=== PATIENT | male | born 1990 | race Caucasian/White ===

== ENCOUNTER 2017-05-02 10:38 | Emergency (ER) | payer MEDICAID ==
[~2017-05-02] VITALS: Ht 185.4 cm; Wt 62.0 kg
[~2017-05-02 10:38] MED LIST: METH10TA2 PO
[2017-05-02] MEDS ORDERED: OLAN10TA3 PO (10:47)
[2017-05-02] MEDS ORDERED: SODIUM CHLORIDE 0.9% 1,000 ML IV ONE (11:08)
[2017-05-02 11:34] LABS: CHLORIDE 104 mEq/L (98-107)
[2017-05-02 11:38] LABS: BASOPHILS % 0.6 % (0.0-2.0); EOSINOPHILS % 3.4 % (0.0-5.0); HEMATOCRIT. 37.2 % (42.0-52.0); HEMOGLOBIN. 12.9 g/dL (14.0-18.0); LYMPHOCYTES % 42.6 % (20.0-50.0); MEAN CORPUSCULAR HEMOGLOBIN 29.6 pg (28.0-32.0); MEAN CORPUSCULAR VOLUME 85.8 fL (80.0-94.0); MEAN PLATELET VOLUME 7.5 fl (7.4-10.4); MONOCYTES % 10.4 % (2.0-8.0); PLATELET 243 x1000/uL (130-400); RED BLOOD CELL COUNT 4.34 mill/uL (4.7-6.1); RED CELL DISTRIBUTION WIDTH 12.7 % (11.6-14.6)
[2017-05-02 11:43] LABS: CARBON DIOXIDE 30 mEq/L (21-32); ETHANOL BLOOD < 10 mg/dL
[2017-05-02 12:34] VITALS: BP 120/64
[2017-05-02 12:49] LABS: *AMPHETAMINES SCREEN URINE NEGATIVE (NEGATIVE); *BARBITURATES SCREEN URINE NEGATIVE (NEGATIVE); *BENZODIAZEPINES SCREEN URINE NEGATIVE (NEGATIVE); *COCAINE SCREEN URINE PRESUMTIVE POSITIVE (NEGATIVE); CANNABINOID URINE SCREEN PRESUMTIVE POSITIVE (NEGATIVE); METHADONE URINE SCREEN PRESUMTIVE POSITIVE (NEGATIVE); OPIATES URINE SCREEN PRESUMTIVE POSITIVE (NEGATIVE); PHENCYCLIDINE URINE SCREEN NEGATIVE (NEGATIVE)
== END 2017-05-02 12:41 | disposition home or self-care (01) ==
LOC: ER 11:16
DX: S02.31XA Fracture of orbital floor, right side, initial encounter for closed fracture (principal); F19.10 Other psychoactive substance abuse, uncomplicated; Y08.89XA Assault by other specified means, initial encounter; Y93.89 Activity, other specified; Y92.89 Other specified places as the place of occurrence of the external cause; Y99.8 Other external cause status
CPT/HCPCS: 36415; 70450; 70486; 80053; 80305; 85025; 93005; 99285; G0482; Z7610; J7030

== ENCOUNTER 2017-08-23 14:09 | Emergency (ER) | payer MEDICAID ==
[~2017-08-23] VITALS: Ht 185.4 cm; Wt 68.0 kg
[~2017-08-23 14:09] MED LIST changes: +OLAN10TA3 PO
[2017-08-23 15:19] LABS: BASOPHILS % 0.5 % (0.0-2.0); EOSINOPHILS % 1.7 % (0.0-5.0); HEMATOCRIT. 40.3 % (42.0-52.0); HEMOGLOBIN. 14.2 g/dL (14.0-18.0); LYMPHOCYTES % 27.7 % (20.0-50.0); MEAN CORPUSCULAR HEMOGLOBIN 30.2 pg (28.0-32.0); MEAN CORPUSCULAR VOLUME 85.8 fL (80.0-94.0); MEAN PLATELET VOLUME 7.1 fl (7.4-10.4); MONOCYTES % 8.3 % (2.0-8.0); NEUTROPHILS % 61.8 % (40.0-76.0); PLATELET 209 x1000/uL (130-400); RED CELL DISTRIBUTION WIDTH 12.4 % (11.6-14.6)
[2017-08-23 15:34] LABS: CLARITY URINE CLEAR (CLEAR); COLOR URINE DARK YELLOW (YELLOW); GLUCOSE URINE NEGATIVE (NEGATIVE); KETONES URINE 1+ (NEGATIVE); LEUKOCYTE ESTERASE URINE TRACE (NEGATIVE); NITRITE URINE NEGATIVE (NEGATIVE); OCCULT BLOOD URINE NEGATIVE (NEGATIVE); PROTEIN URINE NEGATIVE (NEGATIVE); SPECIFIC GRAVITY URINE 1.037 (1.005-1.030)
[2017-08-23 15:35] LABS: CARBON DIOXIDE 26 mEq/L (21-32); CHLORIDE 106 mEq/L (98-107)
[2017-08-23 15:36] LABS: ETHANOL BLOOD < 10 mg/dL
[2017-08-23 15:59] LABS: *AMPHETAMINES SCREEN URINE PRESUMTIVE POSITIVE (NEGATIVE); *BARBITURATES SCREEN URINE NEGATIVE (NEGATIVE); *BENZODIAZEPINES SCREEN URINE NEGATIVE (NEGATIVE); *COCAINE SCREEN URINE NEGATIVE (NEGATIVE); CANNABINOID URINE SCREEN PRESUMTIVE POSITIVE (NEGATIVE); METHADONE URINE SCREEN PRESUMTIVE POSITIVE (NEGATIVE); OPIATES URINE SCREEN PRESUMTIVE POSITIVE (NEGATIVE); PHENCYCLIDINE URINE SCREEN NEGATIVE (NEGATIVE)
[2017-08-23 17:02] VITALS: BP 111/64
== END 2017-08-23 18:49 | disposition home or self-care (01) ==
LOC: ER 14:17
DX: S30.861A Insect bite (nonvenomous) of abdominal wall, initial encounter (principal); F17.210 Nicotine dependence, cigarettes, uncomplicated; F31.9 Bipolar disorder, unspecified; F20.9 Schizophrenia, unspecified; F12.10 Cannabis abuse, uncomplicated; F11.10 Opioid abuse, uncomplicated; W57.XXXA Bitten or stung by nonvenomous insect and other nonvenomous arthropods, initial encounter; Y93.89 Activity, other specified; Y92.488 Other paved roadways as the place of occurrence of the external cause
CPT/HCPCS: 36415; 80053; 80305; 81001; 85025; 93005; 99285; G0482

== ENCOUNTER 2017-11-09 05:12 | Emergency (ER) | payer MEDICAID ==
[~2017-11-09] VITALS: Ht 182.9 cm; Wt 59.0 kg
[2017-11-09 05:17] VITALS: BP 135/80
== END 2017-11-09 10:47 | disposition left against medical advice (07) ==
LOC: ER 05:12
DX: Z53.21 Procedure and treatment not carried out due to patient leaving prior to being seen by health care provider (principal)
CPT/HCPCS: 93005

== ENCOUNTER 2018-04-20 02:29 | Emergency (ER) | payer MEDICAID ==
[~2018-04-20] VITALS: Ht 182.9 cm; Wt 63.0 kg
[2018-04-20] MEDS ORDERED: SODIUM CHLORIDE 0.9% 1,000 ML IV ONE (02:40)
[2018-04-20 03:05] LABS: BASOPHILS % 0.3 % (0.0-2.0); EOSINOPHILS % 0.1 % (0.0-5.0); HEMOGLOBIN. 13.8 g/dL (14.0-18.0); LYMPHOCYTES % 17.8 % (20.0-50.0); MEAN CORPUSCULAR HEMOGLOBIN 30.1 pg (28.0-32.0); MEAN CORPUSCULAR VOLUME 87.2 fL (80.0-94.0); MONOCYTES % 5.6 % (2.0-8.0); NEUTROPHILS % 76.2 % (40.0-76.0); PLATELET 251 x1000/uL (130-400); RED BLOOD CELL COUNT 4.59 mill/uL (4.7-6.1); RED CELL DISTRIBUTION WIDTH 12.7 % (11.6-14.6)
[2018-04-20 03:10] LABS: CHLORIDE 104 mEq/L (98-107)
[2018-04-20 03:15] LABS: ETHANOL BLOOD < 10 mg/dL
[2018-04-20 04:38] LABS: CLARITY URINE CLEAR (CLEAR); COLOR URINE YELLOW (YELLOW); KETONES URINE NEGATIVE (NEGATIVE); LEUKOCYTE ESTERASE URINE 1+ (NEGATIVE); NITRITE URINE NEGATIVE (NEGATIVE); OCCULT BLOOD URINE TRACE (NEGATIVE); PH URINE 5.5 (4.5-8.0); PROTEIN URINE TRACE (NEGATIVE); SPECIFIC GRAVITY URINE 1.014 (1.005-1.030); UROBILINOGEN URINE 0.2 E.U./dL (0.2-1.0)
[2018-04-20 04:46] LABS: *AMPHETAMINES SCREEN URINE PRESUMTIVE POSITIVE (NEGATIVE); *BARBITURATES SCREEN URINE NEGATIVE (NEGATIVE); *BENZODIAZEPINES SCREEN URINE NEGATIVE (NEGATIVE); *COCAINE SCREEN URINE NEGATIVE (NEGATIVE); CANNABINOID URINE SCREEN NEGATIVE (NEGATIVE); PHENCYCLIDINE URINE SCREEN NEGATIVE (NEGATIVE)
[2018-04-20 04:47] LABS: METHADONE URINE SCREEN PRESUMTIVE POSITIVE (NEGATIVE); OPIATES URINE SCREEN PRESUMTIVE POSITIVE (NEGATIVE)
[2018-04-20] MEDS ORDERED: AZITHROMYCIN 500 MG TABLET PO SCH (05:45)
[2018-04-20 06:30] VITALS: BP 129/70
[2018-04-20] MEDS ORDERED: CEFTRIAXONE SODIUM 250 MG/VIAL IM SCH (07:00)
[2018-04-20] MEDS ORDERED: LIDOCAINE HCL/PF 1% 10 MG/ML 5ML VIAL ONE (07:33)
== END 2018-04-20 08:08 | disposition home or self-care (01) ==
LOC: ER 02:29
DX: F11.10 Opioid abuse, uncomplicated (principal); F15.10 Other stimulant abuse, uncomplicated; F20.9 Schizophrenia, unspecified; N39.0 Urinary tract infection, site not specified; R00.0 Tachycardia, unspecified; R00.2 Palpitations; R41.0 Disorientation, unspecified; F17.200 Nicotine dependence, unspecified, uncomplicated
CPT/HCPCS: 36415; 80053; 80305; 80307; 80329; 81003; 85025; 93005; 96372; 99285; G0482; J0696; J3490; J7030

== ENCOUNTER 2018-08-01 14:03 | Inpatient (IN) | payer MEDICAID ==
[~2018-08-01] VITALS: Ht 185.4 cm; Wt 74.6 kg
[2018-08-01] MEDS ORDERED: SODIUM CHLORIDE 0.9% 1,000 ML IV ONE (21:37)
[2018-08-01] MEDS ORDERED: ACETAMINOPHEN 325MG TABLET PO STA (22:22)
[2018-08-01] MEDS ORDERED: SODIUM CHLORIDE 0.9% 1000ML BAG (SEPSIS BOLUS) IV ONE (22:30)
[2018-08-01] MEDS ORDERED: PIPERACILLIN/TAZ 3.375G PREMIX 50 ML IV ONE (22:30)
[2018-08-01] MEDS ORDERED: VANCOMYCIN 1 G PREMIX 200 ML IV ONE (22:30)
[2018-08-02 00:33] LABS: BASOPHILS % 0.4 % (0.0-2.0); EOSINOPHILS % 1.5 % (0.0-5.0); HEMATOCRIT. 37.8 % (42.0-52.0); HEMOGLOBIN. 12.9 g/dL (14.0-18.0); LYMPHOCYTES % 20.9 % (20.0-50.0); MEAN CORPUSCULAR VOLUME 87.8 fL (80.0-94.0); MEAN PLATELET VOLUME 7.5 fl (7.4-10.4); MONOCYTES % 10.4 % (2.0-8.0); NEUTROPHILS % 66.8 % (40.0-76.0); PLATELET 229 x1000/uL (130-400); RED CELL DISTRIBUTION WIDTH 12.6 % (11.6-14.6)
[2018-08-02 00:37] LABS: PROTHROMBIN TIME 10.5 sec (9.1-11.1)
[2018-08-02 00:38] LABS: CHLORIDE 101 mEq/L (98-107)
[2018-08-02 00:45] LABS: ETHANOL BLOOD < 10 mg/dL
[2018-08-02 01:25] LABS: CLARITY URINE CLEAR (CLEAR); COLOR URINE YELLOW (YELLOW); KETONES URINE NEGATIVE (NEGATIVE); LEUKOCYTE ESTERASE URINE NEGATIVE (NEGATIVE); NITRITE URINE NEGATIVE (NEGATIVE); OCCULT BLOOD URINE NEGATIVE (NEGATIVE); PROTEIN URINE NEGATIVE (NEGATIVE); SPECIFIC GRAVITY URINE 1.004 (1.005-1.030)
[2018-08-02] MEDS ORDERED: SODIUM CHLORIDE 0.9% 1,000 ML IV ONE (01:29)
[2018-08-02 01:39] LABS: CANNABINOID URINE SCREEN NEGATIVE (NEGATIVE); PHENCYCLIDINE URINE SCREEN NEGATIVE (NEGATIVE)
[2018-08-02 01:40] LABS: *AMPHETAMINES SCREEN URINE PRESUMTIVE POSITIVE (NEGATIVE); *BARBITURATES SCREEN URINE NEGATIVE (NEGATIVE); *BENZODIAZEPINES SCREEN URINE NEGATIVE (NEGATIVE); *COCAINE SCREEN URINE NEGATIVE (NEGATIVE); METHADONE URINE SCREEN PRESUMTIVE POSITIVE (NEGATIVE); OPIATES URINE SCREEN NEGATIVE (NEGATIVE)
[2018-08-02] MEDS ORDERED: ACETAMINOPHEN 650MG SUPP PR PRN (08:00)
[2018-08-02] MEDS ORDERED: ONDANSETRON HCL 4MG/2ML INJ IV PRN (08:00)
[2018-08-02] MEDS ORDERED: MAGNESIUM/ALUMINUM HYDROXIDE/SIMETHICONE 30ML UDC PO PRN (08:00)
[2018-08-02] MEDS ORDERED: ACETAMINOPHEN 325MG TABLET PO PRN (08:00)
[2018-08-02] MEDS ORDERED: ACETAMINOPHEN 650MG/20.3ML UDC GT PRN (08:00)
[2018-08-02] MEDS ORDERED: HYDROCODONE/ACETAMINOPHEN 5/325MG TABLET PO PRN (08:00)
[2018-08-02 09:26] VITALS: BP 106/62
[2018-08-02 09:45] VITALS: BP 106/62
[2018-08-02 12:00] VITALS: BP 87/45
[2018-08-02] MEDS ORDERED: NOREPINEPHRINE 32 MG in DEXT 5% WATER 468 ML IV PRN (13:00)
[2018-08-02] MEDS ORDERED: VANCOMYCIN 1500MG in DEXTROSE 5% WATER 250ML IV SCH ×2 (15:00→21:00)
[2018-08-02 15:53] VITALS: BP 88/48
[2018-08-02] MEDS ORDERED: NOREPINEPHRINE 16MG in DEXT 5% WATER 250ML (QUADRUPLE CONC) IV PRN (17:30)
[2018-08-02] MEDS: OLANZAPINE 10MG TABLET PO SCH (17:38)
[2018-08-02] MEDS: HYDROCODONE/ACETAMINOPHEN 10/325MG TABLET PO PRN (17:50)
[2018-08-02] MEDS: NEOMY SULF/BACITRAC ZN/POLY OINT 28GM TOP SCH ×2 (18:08→21:24)
[2018-08-02 20:00] VITALS: BP 139/63
[2018-08-02] MEDS: HEMORRHOIDAL SUPP PR SCH (21:00)
[2018-08-02 22:00] VITALS: BP 121/62
[2018-08-03] VITALS (8 sets, daily range): BP systolic 91–112; BP diastolic 52–63
[2018-08-03] MEDS: HYDROCODONE/ACETAMINOPHEN 10/325MG TABLET PO PRN (03:54)
[2018-08-03] MEDS: VANCOMYCIN 1250MG in DEXTROSE 5% WATER 250ML IV SCH ×3 (05:14→21:48)
[2018-08-03] MEDS: OLANZAPINE 10MG TABLET PO SCH (08:44)
[2018-08-03] MEDS: HEMORRHOIDAL SUPP PR SCH ×2 (08:45→21:00)
[2018-08-03] MEDS: METHADONE HCL 10MG TABLET PO SCH (08:45)
[2018-08-03] MEDS: NEOMY SULF/BACITRAC ZN/POLY OINT 28GM TOP SCH ×2 (08:46→21:48)
[2018-08-03] MEDS: DOCUSATE SODIUM 250MG CAPSULE PO SCH (09:00)
[2018-08-03] MEDS ORDERED: LIDOCAINE HCL/PF 1% 2ML VIAL ONE (11:08)
[2018-08-03] MEDS: SODIUM CHLORIDE 0.45% 1,000 ML IV SCH ×2 (11:30→21:30)
[2018-08-03 13:42] LABS: BG BASE EXCESS -3.6 mmol/L (-2.0-2.0); BG CARBOXYHEMOGLOBIN 0.2 % (0.5-1.5); BG DEOXYHEMOGLOBIN 4.3 % (0.0-5.0); BG HCO3 ACT 21.1 mmol/L (22.0-26.0); BG METHEMOGLOBIN 0.3 % (0.0-1.5); BG OXYGEN SATURATION 95.7 % (92.0-98.5); BG OXYHEMOGLOBIN 95.2 % (94.0-97.0); BG PH 7.374 (7.350-7.450); BG PO2 86.7 mmHg (75.0-100.0); BG SAMPLE SITE RIGHT RADIAL; BG TOTAL HEMOGLOBIN 12.8 g/dL (12.0-18.0); BG VENT MODE ROOM AIR
[2018-08-03 15:34] LABS: CHLORIDE 107 mEq/L (98-107)
[2018-08-03 15:37] LABS: BASOPHILS % 0.6 % (0.0-2.0); HEMATOCRIT. 35.9 % (42.0-52.0); HEMOGLOBIN. 12.3 g/dL (14.0-18.0); LYMPHOCYTES % 37.8 % (20.0-50.0); MEAN CORPUSCULAR HEMOGLOBIN 29.9 pg (28.0-32.0); MEAN CORPUSCULAR VOLUME 87.3 fL (80.0-94.0); MEAN PLATELET VOLUME 7.8 fl (7.4-10.4); MONOCYTES % 9.3 % (2.0-8.0); NEUTROPHILS % 49.3 % (40.0-76.0); PLATELET 221 x1000/uL (130-400); RED BLOOD CELL COUNT 4.11 mill/uL (4.7-6.1); RED CELL DISTRIBUTION WIDTH 12.7 % (11.6-14.6)
[2018-08-03 15:40] LABS: AMMONIA 40 uMol/L (<32)
[2018-08-03 15:41] LABS: LDL CHOLESTEROL 62 mg/dL (5-100)
[2018-08-03 15:42] LABS: HDL CHOLESTEROL 35 mg/dL (40-59); T4 FREE 1.37 ng/dL (0.76-1.46)
[2018-08-03] MEDS: FOLIC ACID 1MG TABLET PO SCH (16:07)
[2018-08-03] MEDS: THIAMINE HCL 100MG TABLET PO SCH (16:07)
[2018-08-03] MEDS: MULTIVITAMINS,THER W-MINERALS TABLET PO SCH (16:08)
[2018-08-03 19:01] LABS: T4 FREE 1.41 ng/dL (0.76-1.46)
[2018-08-04] VITALS (11 sets, daily range): BP systolic 84–113; BP diastolic 49–64
[2018-08-04] MEDS: VANCOMYCIN 1250MG in DEXTROSE 5% WATER 250ML IV SCH ×3 (05:21→21:09)
[2018-08-04] MEDS: SODIUM CHLORIDE 0.45% 1,000 ML IV SCH ×2 (05:21→16:37)
[2018-08-04 07:04] LABS: AMMONIA 65 uMol/L (<32)
[2018-08-04 07:16] LABS: EOSINOPHILS % 3.3 % (0.0-5.0); HEMATOCRIT. 36.4 % (42.0-52.0); HEMOGLOBIN. 12.5 g/dL (14.0-18.0); LYMPHOCYTES % 40.8 % (20.0-50.0); MEAN CORPUSCULAR HEMOGLOBIN 30.1 pg (28.0-32.0); MEAN CORPUSCULAR VOLUME 87.7 fL (80.0-94.0); NEUTROPHILS % 46.9 % (40.0-76.0); PLATELET 259 x1000/uL (130-400); RED BLOOD CELL COUNT 4.15 mill/uL (4.7-6.1); RED CELL DISTRIBUTION WIDTH 12.5 % (11.6-14.6)
[2018-08-04] MEDS: HEMORRHOIDAL SUPP PR SCH ×2 (09:00→21:00)
[2018-08-04] MEDS: METHADONE HCL 10MG TABLET PO SCH (09:00)
[2018-08-04] MEDS: DOCUSATE SODIUM 250MG CAPSULE PO SCH (09:00)
[2018-08-04] MEDS: OLANZAPINE 10MG TABLET PO SCH (09:12)
[2018-08-04] MEDS: FOLIC ACID 1MG TABLET PO SCH (09:12)
[2018-08-04] MEDS: NEOMY SULF/BACITRAC ZN/POLY OINT 28GM TOP SCH ×2 (09:12→21:09)
[2018-08-04] MEDS: MULTIVITAMINS,THER W-MINERALS TABLET PO SCH (09:12)
[2018-08-04] MEDS: THIAMINE HCL 100MG TABLET PO SCH (09:14)
[2018-08-04 09:38] LABS: PHOSPHORUS 3.2 mg/dL (2.5-4.9)
[2018-08-04 09:39] LABS: VANCOMYCIN TROUGH 20.5 ug/mL (5.0-10.0)
[2018-08-04 09:43] LABS: CHLORIDE 107 mEq/L (98-107)
[2018-08-04 10:15] LABS: HEPATITIS B SURFACE ANTIGEN NEGATIVE
[2018-08-04 10:41] LABS: HEPATITIS B CORE AB IGM NEGATIVE
[2018-08-04 10:43] LABS: HEPATITIS A AB IGM NEGATIVE (NEGATIVE)
[2018-08-05] VITALS (9 sets, daily range): BP systolic 92–135; BP diastolic 49–74
[2018-08-05] MEDS: SODIUM CHLORIDE 0.45% 1,000 ML IV SCH ×2 (01:00→02:54)
[2018-08-05] MEDS: HYDROCODONE/ACETAMINOPHEN 10/325MG TABLET PO PRN (03:44)
[2018-08-05] MEDS: VANCOMYCIN 1250MG in DEXTROSE 5% WATER 250ML IV SCH (06:06)
[2018-08-05 08:26] LABS: BASOPHILS % 0.7 % (0.0-2.0); EOSINOPHILS % 2.3 % (0.0-5.0); HEMATOCRIT. 37.5 % (42.0-52.0); HEMOGLOBIN. 13.1 g/dL (14.0-18.0); LYMPHOCYTES % 27.1 % (20.0-50.0); MEAN CORPUSCULAR HEMOGLOBIN 30.3 pg (28.0-32.0); MEAN CORPUSCULAR VOLUME 86.7 fL (80.0-94.0); MEAN PLATELET VOLUME 7.4 fl (7.4-10.4); NEUTROPHILS % 63.9 % (40.0-76.0); PLATELET 275 x1000/uL (130-400); RED BLOOD CELL COUNT 4.33 mill/uL (4.7-6.1); RED CELL DISTRIBUTION WIDTH 12.4 % (11.6-14.6)
[2018-08-05] MEDS: HEMORRHOIDAL SUPP PR SCH (09:00)
[2018-08-05] MEDS: FOLIC ACID 1MG TABLET PO SCH (09:00)
[2018-08-05] MEDS: THIAMINE HCL 100MG TABLET PO SCH (09:00)
[2018-08-05] MEDS: MULTIVITAMINS,THER W-MINERALS TABLET PO SCH (09:00)
[2018-08-05] MEDS: METHADONE HCL 10MG TABLET PO SCH (09:00)
[2018-08-05] MEDS: OLANZAPINE 10MG TABLET PO SCH (09:00)
[2018-08-05] MEDS: NEOMY SULF/BACITRAC ZN/POLY OINT 28GM TOP SCH (09:00)
[2018-08-05] MEDS: DOCUSATE SODIUM 250MG CAPSULE PO SCH (09:00)
[2018-08-05 09:06] LABS: CHLORIDE 105 mEq/L (98-107)
[2018-08-05 09:11] LABS: PHOSPHORUS 2.4 mg/dL (2.5-4.9)
[2018-08-05 10:08] LABS: HIV SCREEN 4G Non Reactive (Non Reactive)
== END 2018-08-05 12:00 | disposition home or self-care (01) | DRG 720 ==
LOC: ER 14:57 → 6EST 08-02 01:02 → EDBEDREQ 08-02 01:03 → ENRESERV 08-02 07:40 → CVICU 08-02 16:37 → 3WST 08-02 18:56
PROVIDERS: ADMIT Internal Medicine; ATTEND Internal Medicine
DX: A41.9 Sepsis, unspecified organism (principal); R65.21 Severe sepsis with septic shock; G92 Toxic encephalopathy; E44.1 Mild protein-calorie malnutrition; F20.9 Schizophrenia, unspecified; L03.116 Cellulitis of left lower limb; B19.20 Unspecified viral hepatitis C without hepatic coma; D64.9 Anemia, unspecified; N50.89 Other specified disorders of the male genital organs; F17.210 Nicotine dependence, cigarettes, uncomplicated; K64.8 Other hemorrhoids; F14.10 Cocaine abuse, uncomplicated; F15.10 Other stimulant abuse, uncomplicated; R21 Rash and other nonspecific skin eruption; F31.9 Bipolar disorder, unspecified; K59.00 Constipation, unspecified; F99 Mental disorder, not otherwise specified; Z79.899 Other long term (current) drug therapy; Z71.6 Tobacco abuse counseling; Z68.21 Body mass index [BMI] 21.0-21.9, adult
CPT/HCPCS: 36415; 36600; 70544; 70553; 71045; 73630; 76700; 76870; 80048; 80061; 80202; 80305; 80307; 80329; 82140; 82375; 82607; 82746; 82805; 83036; 83605; 83735; 84100; 84145; 84439; 84443; 84481; 86705; 86709; 86803; 87340; 87389; 93005; 93970; 93976; 96365; 96366; 96368; 99285; G0482; J2543; J3370; J3490; J7030; J7050; J7060

== ENCOUNTER 2018-08-09 16:41 | Inpatient (IN) | payer MEDICAID ==
[~2018-08-09] VITALS: Ht 185.4 cm; Wt 63.5 kg
[2018-08-09] MEDS ORDERED: SODIUM CHLORIDE 0.9% 1000ML BAG (SEPSIS BOLUS) IV ONE (18:00)
[2018-08-09 18:29] LABS: PROTHROMBIN TIME 10.5 sec (9.1-11.1)
[2018-08-09 18:31] LABS: BASOPHILS % 0.6 % (0.0-2.0); CHLORIDE 103 mEq/L (98-107); EOSINOPHILS % 1.1 % (0.0-5.0); HEMATOCRIT. 37.8 % (42.0-52.0); LYMPHOCYTES % 37.4 % (20.0-50.0); MEAN CORPUSCULAR HEMOGLOBIN 29.9 pg (28.0-32.0); MEAN CORPUSCULAR VOLUME 86.6 fL (80.0-94.0); MEAN PLATELET VOLUME 7.2 fl (7.4-10.4); NEUTROPHILS % 49.9 % (40.0-76.0); PLATELET 332 x1000/uL (130-400); RED BLOOD CELL COUNT 4.36 mill/uL (4.7-6.1); RED CELL DISTRIBUTION WIDTH 12.8 % (11.6-14.6)
[2018-08-09 20:42] LABS: CLARITY URINE CLEAR (CLEAR); COLOR URINE YELLOW (YELLOW); KETONES URINE 1+ (NEGATIVE); LEUKOCYTE ESTERASE URINE NEGATIVE (NEGATIVE); NITRITE URINE NEGATIVE (NEGATIVE); OCCULT BLOOD URINE NEGATIVE (NEGATIVE); PH URINE 5.5 (4.5-8.0); PROTEIN URINE NEGATIVE (NEGATIVE); SPECIFIC GRAVITY URINE 1.026 (1.005-1.030); UROBILINOGEN URINE 0.2 E.U./dL (0.2-1.0)
[2018-08-09] MEDS ORDERED: PIPERACILLIN/TAZOBACTAM 3.375GM/50ML PREMIX IV ONE (21:00)
[2018-08-09] MEDS ORDERED: VANCOMYCIN 1 G PREMIX 200 ML IV SCH (21:00)
[2018-08-09] MEDS ORDERED: PIPERACILLIN/TAZ 3.375G PREMIX 50 ML IV NR (21:30)
[2018-08-09] MEDS ORDERED: DOCUSATE SODIUM 100MG CAPSULE PO PRN (23:45)
[2018-08-09] MEDS ORDERED: MAGNESIUM/ALUMINUM HYDROXIDE/SIMETHICONE 30ML UDC PO PRN (23:45)
[2018-08-09] MEDS ORDERED: ACETAMINOPHEN 325MG TABLET PO PRN (23:45)
[2018-08-09] MEDS ORDERED: HYDROCODONE/ACETAMINOPHEN 5/325MG TABLET PO PRN (23:45)
[2018-08-09] MEDS ORDERED: IPRATROPIUM/ALBUTEROL 0.5-3(2.5)MG/3ML NEB INH PRN (23:45)
[2018-08-09] MEDS ORDERED: ONDANSETRON HCL 4MG/2ML INJ IV PRN (23:45)
[2018-08-09] MEDS ORDERED: CLONIDINE 0.1MG TABLET PO PRN (23:45)
[2018-08-10] VITALS (7 sets, daily range): BP systolic 100–138; BP diastolic 59–107
[2018-08-10 01:57] LABS: CHLORIDE 105 mEq/L (98-107)
[2018-08-10] MEDS: ENOXAPARIN 40MG/0.4ML SYR SUBCUT SCH ×2 (02:16→21:07)
[2018-08-10] MEDS ORDERED: VANCOMYCIN 1250MG in DEXTROSE 5% WATER 250ML IV SCH (03:00)
[2018-08-10] MEDS: SODIUM CHLORIDE 0.9% 1,000 ML IV SCH ×2 (03:08→12:25)
[2018-08-10 04:19] LABS: *BENZODIAZEPINES SCREEN URINE NEGATIVE (NEGATIVE); *COCAINE SCREEN URINE NEGATIVE (NEGATIVE); METHADONE URINE SCREEN PRESUMTIVE POSITIVE (NEGATIVE)
[2018-08-10 04:20] LABS: *AMPHETAMINES SCREEN URINE PRESUMTIVE POSITIVE (NEGATIVE); *BARBITURATES SCREEN URINE NEGATIVE (NEGATIVE); CANNABINOID URINE SCREEN NEGATIVE (NEGATIVE); OPIATES URINE SCREEN NEGATIVE (NEGATIVE); PHENCYCLIDINE URINE SCREEN NEGATIVE (NEGATIVE)
[2018-08-10] MEDS ORDERED: PIPERACILLIN/TAZ 3.375G PREMIX 50 ML IV SCH ×2 (06:00→12:00)
[2018-08-10 07:15] LABS: BASOPHILS % 1.1 % (0.0-2.0); EOSINOPHILS % 2.5 % (0.0-5.0); HEMOGLOBIN. 12.2 g/dL (14.0-18.0); LYMPHOCYTES % 27.4 % (20.0-50.0); MEAN CORPUSCULAR HEMOGLOBIN 30.2 pg (28.0-32.0); MEAN CORPUSCULAR VOLUME 86.8 fL (80.0-94.0); MEAN PLATELET VOLUME 7.4 fl (7.4-10.4); MONOCYTES % 10.2 % (2.0-8.0); NEUTROPHILS % 58.8 % (40.0-76.0); PLATELET 308 x1000/uL (130-400); RED BLOOD CELL COUNT 4.03 mill/uL (4.7-6.1); RED CELL DISTRIBUTION WIDTH 12.8 % (11.6-14.6)
[2018-08-10 08:05] LABS: CREATINE KINASE 419 IU/L (39-308)
[2018-08-10 08:06] LABS: HDL CHOLESTEROL 45 mg/dL (40-59); LDL CHOLESTEROL 67 mg/dL (5-100)
[2018-08-10] MEDS: OLANZAPINE 10MG TABLET PO SCH (11:01)
[2018-08-10] MEDS ORDERED: METHADONE HCL 10MG TABLET PO SCH (11:30)
[2018-08-10] MEDS ORDERED: METHADONE HCL 10MG TABLET PO NR (16:15)
[2018-08-10] MEDS: PIPERACILLIN/TAZ 3.375G PREMIX 50 ML IV SCH ×2 (16:18→23:58)
[2018-08-10] MEDS: VANCOMYCIN 1500MG in DEXTROSE 5% WATER 250ML IV SCH (21:07)
[2018-08-11] VITALS: BP 110/62
[2018-08-11] MEDS: SODIUM CHLORIDE 0.9% 1,000 ML IV SCH (02:24)
[2018-08-11 04:00] VITALS: BP 117/61
[2018-08-11] MEDS: PIPERACILLIN/TAZ 3.375G PREMIX 50 ML IV SCH ×2 (06:51→09:25)
[2018-08-11 07:30] LABS: EOSINOPHILS % 5.6 % (0.0-5.0); HEMATOCRIT. 35.7 % (42.0-52.0); HEMOGLOBIN. 12.5 g/dL (14.0-18.0); MEAN CORPUSCULAR HEMOGLOBIN 30.5 pg (28.0-32.0); MEAN CORPUSCULAR VOLUME 87.1 fL (80.0-94.0); MEAN PLATELET VOLUME 7.5 fl (7.4-10.4); MONOCYTES % 11.2 % (2.0-8.0); NEUTROPHILS % 45.2 % (40.0-76.0); PLATELET 301 x1000/uL (130-400); RED CELL DISTRIBUTION WIDTH 12.6 % (11.6-14.6)
[2018-08-11 07:46] LABS: CHLORIDE 106 mEq/L (98-107)
[2018-08-11 08:00] VITALS: BP 94/59
[2018-08-11] MEDS: OLANZAPINE 10MG TABLET PO SCH (09:24)
[2018-08-11 12:00] VITALS: BP 97/62
[2018-08-11] MEDS: VANCOMYCIN 1500MG in DEXTROSE 5% WATER 250ML IV SCH (13:27)
[2018-08-11] MEDS ORDERED: SULF1TAB44 PO (17:07)
[2018-08-11] MEDS ORDERED: AMOXL215 PO (17:07)
[2018-08-11 17:25] VITALS: BP 97/62
[2018-08-11] MEDS ORDERED: AMOXICILLIN/POTASSIUM CLAVULANATE 875/125MG TAB PO SCH (21:00)
[2018-08-11] MEDS ORDERED: VANCOMYCIN 1500MG in DEXTROSE 5% WATER 250ML IV SCH (21:00)
[2018-08-11] MEDS ORDERED: SULFAMETHOXAZOLE/TRIMETHOPRIM 800/160MG TABLET PO SCH (21:00)
[2018-08-11] MEDS ORDERED: SODIUM CHLORIDE 0.9% 250 ML IV NR ×2 (21:30→22:30)
== END 2018-08-11 23:34 | disposition home or self-care (01) | DRG 720 ==
LOC: ER 16:41 → 6EST 21:31 → ENRESERV 23:12
PROVIDERS: ADMIT Internal Medicine; ATTEND Internal Medicine
DX: A41.9 Sepsis, unspecified organism (principal); F20.9 Schizophrenia, unspecified; L03.116 Cellulitis of left lower limb; B18.2 Chronic viral hepatitis C; D64.9 Anemia, unspecified; F31.9 Bipolar disorder, unspecified; F17.200 Nicotine dependence, unspecified, uncomplicated; K64.8 Other hemorrhoids
CPT/HCPCS: 36415; 80048; 80053; 80061; 80305; 81003; 82550; 82553; 83605; 84443; 84484; 85025; 85610; 87040; 93005; 93970; 96365; 96366; 96368; 99285; J1650; J2543; J3370; J7030; J7050; J7060

== ENCOUNTER 2018-08-18 14:38 | Emergency (ER) | payer MEDICAID ==
[~2018-08-18] VITALS: Ht 175.3 cm; Wt 70.0 kg
[~2018-08-18 14:38] MED LIST changes: +AMOXL215 PO; +SULF1TAB44 PO
[2018-08-18] MEDS ORDERED: PIPERACILLIN/TAZ 3.375G PREMIX 50 ML IV ONE (15:30)
[2018-08-18] MEDS ORDERED: KETOROLAC 30MG/ML VIAL IV ONE (15:30)
[2018-08-18] MEDS ORDERED: VANCOMYCIN 1 G PREMIX 200 ML IV ONE (15:30)
[2018-08-18] MEDS ORDERED: SODIUM CHLORIDE 0.9% 1000ML BAG (SEPSIS BOLUS) IV ONE (15:30)
[2018-08-18] MEDS ORDERED: SULFAMETHOXAZOLE/TRIMETHOPRIM 800/160MG TABLET PO ONE (16:15)
[2018-08-18] MEDS ORDERED: CEPHALEXIN 250MG CAPSULE PO ONE (16:15)
[2018-08-18 16:24] LABS: BASOPHILS % 0.5 % (0.0-2.0); EOSINOPHILS % 2.4 % (0.0-5.0); HEMATOCRIT. 34.9 % (42.0-52.0); HEMOGLOBIN. 12.1 g/dL (14.0-18.0); LYMPHOCYTES % 42.5 % (20.0-50.0); MEAN CORPUSCULAR HEMOGLOBIN 30.2 pg (28.0-32.0); MEAN PLATELET VOLUME 6.9 fl (7.4-10.4); MONOCYTES % 7.7 % (2.0-8.0); NEUTROPHILS % 46.9 % (40.0-76.0); PLATELET 318 x1000/uL (130-400); RED BLOOD CELL COUNT 4.01 mill/uL (4.7-6.1); RED CELL DISTRIBUTION WIDTH 12.5 % (11.6-14.6)
[2018-08-18 16:30] LABS: INR 1.1; PARTIAL THROMBOPLASTIN TIME 30.6 sec (23.4-31.0); PROTHROMBIN TIME 10.6 sec (9.1-11.1)
[2018-08-18 16:31] LABS: CHLORIDE 101 mEq/L (98-107)
[2018-08-18 16:39] LABS: ETHANOL BLOOD < 10 mg/dL
[2018-08-18 18:46] LABS: CLARITY URINE CLEAR (CLEAR); COLOR URINE YELLOW (YELLOW); KETONES URINE NEGATIVE (NEGATIVE); LEUKOCYTE ESTERASE URINE NEGATIVE (NEGATIVE); NITRITE URINE NEGATIVE (NEGATIVE); OCCULT BLOOD URINE NEGATIVE (NEGATIVE); PH URINE 6.5 (4.5-8.0); PROTEIN URINE NEGATIVE (NEGATIVE); SPECIFIC GRAVITY URINE 1.014 (1.005-1.030)
[2018-08-18 19:03] LABS: *AMPHETAMINES SCREEN URINE PRESUMTIVE POSITIVE (NEGATIVE); *BARBITURATES SCREEN URINE NEGATIVE (NEGATIVE); *BENZODIAZEPINES SCREEN URINE NEGATIVE (NEGATIVE)
[2018-08-18 19:04] LABS: *COCAINE SCREEN URINE NEGATIVE (NEGATIVE); CANNABINOID URINE SCREEN NEGATIVE (NEGATIVE); METHADONE URINE SCREEN PRESUMTIVE POSITIVE (NEGATIVE); OPIATES URINE SCREEN NEGATIVE (NEGATIVE); PHENCYCLIDINE URINE SCREEN NEGATIVE (NEGATIVE)
[2018-08-18 20:19] VITALS: BP 101/53
== END 2018-08-18 20:30 | disposition home or self-care (01) ==
LOC: ER 14:38
DX: L03.116 Cellulitis of left lower limb (principal); T50.905A Adverse effect of unspecified drugs, medicaments and biological substances, initial encounter; T65.91XA Toxic effect of unspecified substance, accidental (unintentional), initial encounter; R41.82 Altered mental status, unspecified; F20.9 Schizophrenia, unspecified; Y92.9 Unspecified place or not applicable
CPT/HCPCS: 36415; 70450; 71045; 80053; 80305; 80307; 80329; 81003; 82962; 83605; 84145; 84484; 85025; 85610; 85730; 87040; 87086; 93005; 93970; 99285; G0482; J7030

== ENCOUNTER 2019-03-08 15:38 | Emergency (ER) | payer MEDICAID ==
[~2019-03-08] VITALS: Ht 175.3 cm; Wt 75.0 kg
[2019-03-08 15:42] VITALS: BP 108/64
== END 2019-03-08 17:10 | disposition left against medical advice (07) ==
LOC: ER 15:38
DX: R45.1 Restlessness and agitation (principal); R05 Cough; F20.9 Schizophrenia, unspecified; F11.10 Opioid abuse, uncomplicated; F15.10 Other stimulant abuse, uncomplicated; Z79.899 Other long term (current) drug therapy
CPT/HCPCS: 99283; 99284

== ENCOUNTER 2019-08-02 15:20 | Emergency (ER) | payer MEDICAID ==
[~2019-08-02] VITALS: Ht 172.7 cm; Wt 80.0 kg
[2019-08-02] MEDS ORDERED: VANCOMYCIN 1 G PREMIX 200 ML IV ONE (16:15)
[2019-08-02] MEDS ORDERED: SODIUM CHLORIDE 0.9% 1000ML BAG (SEPSIS BOLUS) IV ONE (16:15)
[2019-08-02] MEDS ORDERED: IBUPROFEN 600MG TABLET PO ONE (16:15)
[2019-08-02] MEDS ORDERED: PIPERACILLIN/TAZ 3.375G PREMIX 50 ML IV ONE (16:15)
[2019-08-02 18:12] LABS: BASOPHILS % 0.5 % (0.0-2.0); EOSINOPHILS % 0.4 % (0.0-5.0); HEMATOCRIT. 37.3 % (42.0-52.0); HEMOGLOBIN. 12.7 g/dL (14.0-18.0); LYMPHOCYTES % 11.8 % (20.0-50.0); MEAN CORPUSCULAR HEMOGLOBIN 29.9 pg (28.0-32.0); MEAN CORPUSCULAR VOLUME 88.1 fL (80.0-94.0); MEAN PLATELET VOLUME 8.4 fl (7.4-10.4); MONOCYTES % 7.5 % (2.0-8.0); NEUTROPHILS % 79.8 % (40.0-76.0); PLATELET 244 x1000/uL (130-400); RED BLOOD CELL COUNT 4.23 mill/uL (4.7-6.1)
[2019-08-02 18:16] LABS: PROTHROMBIN TIME 10.1 sec (9.6-11.0)
[2019-08-02 18:17] LABS: CHLORIDE 103 mEq/L (98-107)
[2019-08-02 18:33] LABS: PLATELET ESTIMATE NORMAL
[2019-08-02 19:31] VITALS: BP 110/76
== END 2019-08-02 20:09 | disposition home or self-care (01) ==
LOC: ER 15:20 → EDBEDREQ 17:57 → ER 20:09 → CANBEDREQ 20:55
DX: A41.9 Sepsis, unspecified organism (principal); L03.116 Cellulitis of left lower limb; F11.10 Opioid abuse, uncomplicated; F20.9 Schizophrenia, unspecified; Z79.899 Other long term (current) drug therapy
CPT/HCPCS: 36415; 71045; 73610; 73630; 80053; 83605; 84145; 84484; 85025; 85610; 87040; 93005; 96365; 96366; 96368; 99291; J2543; J3370; J7030

== ENCOUNTER 2019-12-02 18:12 | Emergency (ER) | payer MEDICAID ==
[~2019-12-02] VITALS: Ht 185.4 cm; Wt 71.0 kg
[2019-12-02 18:17] VITALS: BP 116/69
== END 2019-12-02 22:31 | disposition left against medical advice (07) ==
LOC: ER 18:12
DX: R10.9 Unspecified abdominal pain (principal); Z53.21 Procedure and treatment not carried out due to patient leaving prior to being seen by health care provider

== ENCOUNTER 2019-12-03 01:27 | Emergency (ER) | payer MEDICAID ==
[~2019-12-03] VITALS: Ht 188 cm; Wt 68.0 kg
[2019-12-03] MEDS ORDERED: LIDOCAINE 5% PATCH TOP STA (06:59)
[2019-12-03] MEDS ORDERED: SODIUM CHLORIDE 0.9% 1,000 ML IV ONE ×2 (06:59→10:00)
[2019-12-03] MEDS ORDERED: KETOROLAC 30MG/ML VIAL IV STA (06:59)
[2019-12-03 07:32] LABS: BASOPHILS % 0.4 % (0.0-2.0); HEMATOCRIT. 39.8 % (42.0-52.0); HEMOGLOBIN. 13.7 g/dL (14.0-18.0); LYMPHOCYTES % 17.2 % (20.0-50.0); MEAN CORPUSCULAR HEMOGLOBIN 30.2 pg (28.0-32.0); MEAN CORPUSCULAR VOLUME 87.4 fL (80.0-94.0); MEAN PLATELET VOLUME 7.3 fl (7.4-10.4); MONOCYTES % 12.4 % (2.0-8.0); PLATELET 246 x1000/uL (130-400); RED BLOOD CELL COUNT 4.55 mill/uL (4.7-6.1); RED CELL DISTRIBUTION WIDTH 13.7 % (11.6-14.6)
[2019-12-03 07:34] LABS: CHLORIDE 96 mEq/L (98-107)
[2019-12-03 09:05] LABS: CLARITY URINE CLEAR (CLEAR); COLOR URINE YELLOW (YELLOW); KETONES URINE NEGATIVE (NEGATIVE); LEUKOCYTE ESTERASE URINE NEGATIVE (NEGATIVE); NITRITE URINE NEGATIVE (NEGATIVE); OCCULT BLOOD URINE 2+ (NEGATIVE); PH URINE 5.5 (4.5-8.0); PROTEIN URINE NEGATIVE (NEGATIVE); SPECIFIC GRAVITY URINE 1.015 (1.005-1.030)
[2019-12-03 13:39] VITALS: BP 117/67
== END 2019-12-03 13:45 | disposition home or self-care (01) ==
LOC: ER 01:27
DX: R10.9 Unspecified abdominal pain (principal); F20.9 Schizophrenia, unspecified; F17.200 Nicotine dependence, unspecified, uncomplicated; Z71.6 Tobacco abuse counseling
CPT/HCPCS: 36415; 74176; 80053; 81003; 83690; 85025; 99284; 99406; J1885; J7030

== ENCOUNTER 2019-12-03 14:00 | Emergency (ER) | payer MEDICAID ==
[~2019-12-03] VITALS: Ht 185.4 cm; Wt 71.0 kg
[2019-12-03 14:09] VITALS: BP 113/75
== END 2019-12-03 16:59 | disposition left against medical advice (07) ==
LOC: ER 15:53
DX: Z53.21 Procedure and treatment not carried out due to patient leaving prior to being seen by health care provider (principal); F20.9 Schizophrenia, unspecified

== ENCOUNTER 2019-12-03 19:08 | Emergency (ER) | payer MEDICAID ==
[~2019-12-03] VITALS: Ht 185.4 cm; Wt 79.6 kg
[2019-12-03 20:54] VITALS: BP 120/75
== END 2019-12-03 20:56 | disposition home or self-care (01) ==
LOC: ER 19:08
DX: M54.9 Dorsalgia, unspecified (principal); F31.9 Bipolar disorder, unspecified; F20.9 Schizophrenia, unspecified; I10 Essential (primary) hypertension
CPT/HCPCS: 99281

== ENCOUNTER 2019-12-08 10:43 | Emergency (ER) | payer MEDICAID ==
[~2019-12-08] VITALS: Ht 185.4 cm; Wt 70.0 kg
[2019-12-08 10:47] VITALS: BP 115/75
== END 2019-12-08 12:40 | disposition home or self-care (01) ==
LOC: ER 10:43
DX: R07.9 Chest pain, unspecified (principal); I10 Essential (primary) hypertension; F20.9 Schizophrenia, unspecified; F31.9 Bipolar disorder, unspecified
CPT/HCPCS: 71045; 93005; 99283

== ENCOUNTER 2020-02-02 05:11 | Emergency (ER) | payer MEDICAID ==
[~2020-02-02] VITALS: Ht 182.9 cm; Wt 73.0 kg
[2020-02-02 05:21] VITALS: BP 114/71
[2020-02-02] MEDS ORDERED: LIDOCAINE HCL/PF 1% 10 MG/ML 5ML VIAL IJ ONE (06:15)
[2020-02-02] MEDS ORDERED: TETANUS, DIPHTHERIA, PERTUSSIS VAC/PF 0.5ML (>7YR OLD) IM ONE (06:15)
[2020-02-02] MEDS ORDERED: BACITRACIN ZINC OINT UDPKT TOP ONE (06:15)
== END 2020-02-02 08:09 | disposition home or self-care (01) ==
LOC: ER 05:28
DX: S01.111A Laceration without foreign body of right eyelid and periocular area, initial encounter (principal); S01.511A Laceration without foreign body of lip, initial encounter; M54.5 Low back pain; F20.9 Schizophrenia, unspecified; I10 Essential (primary) hypertension; F31.9 Bipolar disorder, unspecified; Y04.0XXA Assault by unarmed brawl or fight, initial encounter; Y93.89 Activity, other specified; Y92.488 Other paved roadways as the place of occurrence of the external cause
CPT/HCPCS: 70450; 72100; 72220; 90471; 90715; 99284; J3490

== ENCOUNTER 2020-03-11 09:55 | Emergency (ER) | payer MEDICAID ==
[~2020-03-11] VITALS: Ht 185.4 cm; Wt 63.6 kg
[2020-03-11 10:04] VITALS: BP 108/72
== END 2020-03-11 11:06 | disposition home or self-care (01) ==
LOC: ER 10:04
DX: T20.41 Corrosion of unspecified degree of ear [any part, except ear drum] (principal); H92.01 Otalgia, right ear; H60.91 Unspecified otitis externa, right ear; F17.210 Nicotine dependence, cigarettes, uncomplicated; X58.XXXA Exposure to other specified factors, initial encounter; Y93.89 Activity, other specified; Y92.89 Other specified places as the place of occurrence of the external cause; Y99.8 Other external cause status
CPT/HCPCS: 99283

== ENCOUNTER 2020-06-23 23:54 | Emergency (ER) | payer MEDICAID ==
[~2020-06-23] VITALS: Ht 198.1 cm; Wt 64.0 kg
[2020-06-24 00:31] VITALS: BP 100/60
== END 2020-06-24 01:51 | disposition home or self-care (01) ==
LOC: ER 23:54
DX: T16.1XXA Foreign body in right ear, initial encounter (principal); X58.XXXA Exposure to other specified factors, initial encounter; F20.9 Schizophrenia, unspecified; Z79.899 Other long term (current) drug therapy
CPT/HCPCS: 99284

== ENCOUNTER 2020-07-16 01:16 | Emergency (ER) | payer MEDICAID ==
[~2020-07-16] VITALS: Ht 185.4 cm; Wt 61.0 kg
[2020-07-16] MEDS ORDERED: CEPHALEXIN 250MG CAPSULE PO ONE (01:45)
[2020-07-16] MEDS ORDERED: SULFAMETHOXAZOLE/TRIMETHOPRIM 800/160MG TABLET PO ONE (01:45)
[2020-07-16] MEDS ORDERED: DEXAMETHASONE 4MG/ML 1ML VIAL IM ONE (01:45)
[2020-07-16 02:23] VITALS: BP 131/74
== END 2020-07-16 02:26 | disposition home or self-care (01) ==
LOC: ER 01:16
DX: T78.40XA Allergy, unspecified, initial encounter (principal); L08.9 Local infection of the skin and subcutaneous tissue, unspecified; X58.XXXA Exposure to other specified factors, initial encounter
CPT/HCPCS: 96372; 99283; J1100

== ENCOUNTER 2020-11-25 13:53 | Emergency (ER) | payer MEDICAID ==
[~2020-11-25] VITALS: Ht 185.4 cm; Wt 64.0 kg
[2020-11-25 14:04] VITALS: BP 100/70
[2020-11-25] MEDS ORDERED: SODIUM CHLORIDE 0.9% 1,000 ML IV ONE (14:15)
== END 2020-11-25 14:57 | disposition left against medical advice (07) ==
LOC: ER 13:59
DX: T51.0X1A Toxic effect of ethanol, accidental (unintentional), initial encounter (principal); X58.XXXA Exposure to other specified factors, initial encounter; F20.9 Schizophrenia, unspecified; Z79.899 Other long term (current) drug therapy
CPT/HCPCS: 93005; 99283; J7030

== ENCOUNTER 2021-04-10 13:36 | Emergency (ER) | payer MEDICAID ==
[~2021-04-10] VITALS: Ht 177.8 cm; Wt 70.0 kg
[2021-04-10 13:37] VITALS: BP 111/58
== END 2021-04-10 14:41 | disposition left against medical advice (07) ==
LOC: ER 13:36
DX: T50.901A Poisoning by unspecified drugs, medicaments and biological substances, accidental (unintentional), initial encounter (principal); Y92.89 Other specified places as the place of occurrence of the external cause; R00.0 Tachycardia, unspecified; Z00.00 Encounter for general adult medical examination without abnormal findings; F20.9 Schizophrenia, unspecified; F17.210 Nicotine dependence, cigarettes, uncomplicated
CPT/HCPCS: 99283; Z7610